=== PATIENT | female | born 1990 | race Caucasian/White ===

== ENCOUNTER 2021-08-17 14:43 | Observation (INO) ==
[2021-08-17] MEDS ORDERED: Lactated Ringers 1000 ml BAG 1,000 ML IV ONE (14:55)
[2021-08-17] MEDS ORDERED: Ondansetron 4 mg VIAL 2 MG/ML 2 ml VIAL IV ONE (14:55)
[2021-08-17 15:58] LABS: ABS Lymphocytes 0.7 10^3/ul (1.0-4.8); ABS Monocytes 0.6 10^3/ul (0-0.8); ABS Neutrophils 14.9 10^3/ul (1.5-7.7); Hematocrit 39 % (35-47); Lymphocyte % 4.3 %; Mean Corpuscular HGB Conc 33 g/dL (31-36); Mean Corpuscular Hemoglobin 29 pg (27-31); Mean Corpuscular Volume 86 fL (80-97); Mean Platelet Volume 8.9 fL (7.4-10.4); Platelet Count 252 10^3/uL (150-450); Red Blood Count 4.57 10^6 /uL (3.70-4.87); Red Cell Distribution Width 14 % (10-15); White Blood Count 16.2 10^3/uL (3.5-10.8)
[2021-08-17 16:18] LABS: ALT 27 U/L (7-52); Albumin 4.3 g/dL (3.2-5.2); Albumin/Globulin Ratio 1.5 (1-3); Alkaline Phosphatase 55 U/L (35-149); Blood Urea Nitrogen 13 mg/dL (6-24); C Reactive Protein 5.44 mg/L (<8.01); CO2 Carbon Dioxide 20 mmol/L (22-32); Calcium 8.7 mg/dL (8.6-10.3); Chloride 105 mmol/L (101-111); Globulin 2.8 g/dL (2-4); Glucose 208 mg/dL (70-100); Lipase < 10 U/L (11.0-82.0); Sodium 134 mmol/L (135-145); Total Protein 7.1 g/dL (6.4-8.9); eGFR CKD-EPI 103.8 (>60)
[2021-08-17] MEDS ORDERED: Labetalol IV 5 MG/ML 20 ml VIAL IV PUSH ONE (16:26)
[2021-08-17 16:27] LABS: AST 26 U/L (13-39); Anion Gap 9 mmol/L (2-11); Potassium 4.2 mmol/L (3.5-5.0)
[2021-08-17 17:00] LABS: Troponin I 0.02 ng/mL (<0.03)
[2021-08-17] MEDS ORDERED: Al Hydrox/Mg Hydrox/Simet LIQ 30 ML UDC PO ONE (17:09)
[2021-08-17 17:34] LABS: Urine Appearance Turbid; Urine Bilirubin Negative (Negative); Urine Blood Negative (Negative); Urine Color Yellow; Urine Glucose 3+(>=500 mg/dL) (Negative); Urine Ketones 1+ (Negative); Urine Nitrite Negative (Negative); Urine Protein 1+(30 mg/dL) (Negative); Urine Urobilinogen Negative (Negative)
[2021-08-17 17:46] LABS: Urine Amorphous Crystals Present (Absent); Urine Bacteria 1+ (Absent); Urine Red Blood Cell Absent (Absent); Urine Squamous Epithelial Cell Present (Absent); Urine White Blood Cell Absent (Absent)
[2021-08-17 17:49] LABS: Urine Benzodiazepine Screen None Detected (None Detect); Urine Cannabinoids Screen Presumptive Positive (None Detect); Urine Opiates Screen Presumptive Positive (None Detect)
[2021-08-17] MEDS: Lactated Ringers 1000 ml BAG 1,000 ML IV SCH (20:45)
[2021-08-17] MEDS ORDERED: Labetalol IV 5 MG/ML 20 ml VIAL IV PUSH PRN (21:12)
[2021-08-17] MEDS ORDERED: Acetaminophen IV 1 GM/100ML 100 ML IV ONE (21:17)
[2021-08-17] MEDS ORDERED: Acetaminophen IV 1 GM/100ML VI 100 ML IV ONE (22:00)
[2021-08-18] MEDS: Metoclopramide 5 MG/ML VIAL (10 mg) IV PRN ×3 (02:31→23:38)
[2021-08-18] MEDS: Lactated Ringers 1000 ml BAG 1,000 ML IV SCH (03:20)
[2021-08-18 03:35] LABS: Troponin I 0.03 ng/mL (<0.03)
[2021-08-18] MEDS ORDERED: Labetalol IV 5 MG/ML 20 ml VIAL IV PUSH ONE (05:56)
[2021-08-18 06:25] LABS: ABS Lymphocytes 1.6 10^3/ul (1.0-4.8); ABS Monocytes 1.3 10^3/ul (0-0.8); ABS Neutrophils 10.9 10^3/ul (1.5-7.7); Hematocrit 35 % (35-47); Hemoglobin 11.9 g/dL (12.0-16.0); Lymphocyte % 11.8 %; Mean Corpuscular HGB Conc 34 g/dL (31-36); Mean Corpuscular Hemoglobin 29 pg (27-31); Mean Corpuscular Volume 84 fL (80-97); Mean Platelet Volume 8.7 fL (7.4-10.4); Platelet Count 235 10^3/uL (150-450); Red Blood Count 4.16 10^6 /uL (3.70-4.87); Red Cell Distribution Width 14 % (10-15); White Blood Count 13.9 10^3/uL (3.5-10.8)
[2021-08-18 06:47] LABS: Anion Gap 8 mmol/L (2-11); Blood Urea Nitrogen 7 mg/dL (6-24); CO2 Carbon Dioxide 20 mmol/L (22-32); Calcium 8.4 mg/dL (8.6-10.3); Chloride 106 mmol/L (101-111); Glucose 106 mg/dL (70-100); Potassium 3.7 mmol/L (3.5-5.0); Sodium 134 mmol/L (135-145)
[2021-08-18 07:13] LABS: Troponin I 0.03 ng/mL (<0.03)
[2021-08-18 09:36] LABS: LDH 202 U/L (140-271)
[2021-08-18] MEDS ORDERED: Labetalol IV 5 MG/ML 20 ml VIAL IV PUSH PRN (09:52)
[2021-08-18 11:08] LABS: Magnesium 2.1 mg/dL (1.9-2.7)
[2021-08-18] MEDS: Morphine 2 MG/ML SYRINGE IV PRN ×2 (11:41→21:04)
[2021-08-18 11:51] LABS: TSH Ultra Thyroid Stim Horm 2.39 mcIU/mL (0.34-5.60)
[2021-08-19 05:39] LABS: ABS Lymphocytes 1.9 10^3/ul (1.0-4.8); ABS Monocytes 1.2 10^3/ul (0-0.8); ABS Neutrophils 8.1 10^3/ul (1.5-7.7); Hematocrit 36 % (35-47); Hemoglobin 12.3 g/dL (12.0-16.0); Lymphocyte % 16.7 %; Mean Corpuscular HGB Conc 34 g/dL (31-36); Mean Corpuscular Hemoglobin 29 pg (27-31); Mean Corpuscular Volume 84 fL (80-97); Mean Platelet Volume 8.2 fL (7.4-10.4); Platelet Count 257 10^3/uL (150-450); Red Blood Count 4.29 10^6 /uL (3.70-4.87); Red Cell Distribution Width 15 % (10-15); White Blood Count 11.2 10^3/uL (3.5-10.8)
[2021-08-19 06:12] LABS: C Reactive Protein 2.55 mg/L (<8.01); Calcium 9.2 mg/dL (8.6-10.3); Potassium 3.7 mmol/L (3.5-5.0); eGFR CKD-EPI 125.6 (>60)
[2021-08-19] MEDS: Metoclopramide 5 MG/ML VIAL (10 mg) IV PRN (06:43)
[2021-08-19 07:27] VITALS: BP 110/60
[2021-08-19] MEDS ORDERED: Potassium Chlor 10 meq TAB PO ONE (08:36)
== END 2021-08-19 10:48 | disposition home or self-care (01) ==
LOC: EDHOLD 14:43 → ED 14:43 → SUATTDRO 20:36 → SSU 21:53
PROVIDERS: ADMIT Hospitalist; ATTEND Internal Medicine